=== PATIENT | female | born 1930 | race Caucasian/White ===

== ENCOUNTER 2017-05-01 13:45 | Observation (INO) | payer OTHER ==
--- OUTSIDE RECORDS SUMMARY | 2017-05-01 13:48 | XMS REPORT | Clinical Summary ---
:1930 Author Organization [facility] Address [address] [place] [address] Care Team Providers Name Role Phone Blanca Dorman Primary Care Provider Unavailable Allergies No Known Allergies Current Medications Prescription Sig. Disp. Refills Start Date End Date Status carvedilol (COREG) 6.25 MG Take 6.25 mg by Active tablet mouth 2 (two) times a day with meals. omeprazole (PriLOSEC) 20 Take 20 mg by Active MG capsule mouth daily. levothyroxine (SYNTHROID, Take 150 mcg by Active LEVOTHROID) 150 MCG tablet mouth every morning. clopidogrel (PLAVIX) 75 mg Take 75 mg by Active tablet mouth daily. cholecalciferol, vitamin Take 1,000 Units Active D3, (VITAMIN D3) 1,000 by mouth daily. unit tablet iron, carbonyl, 45 mg Take 65 mg by Active tablet mouth daily. docusate sodium (COLACE) Take 200 mg by Active 100 MG capsule mouth 2 (two) times a day. diphenhydrAMINE (BENADRYL) Take 25 mg by Active 25 mg tablet mouth nightly as needed for sleep. bisacodyl (DULCOLAX) 5 mg Take 5 mg by mouth Active EC tablet daily as needed for constipation. melatonin tablet Take by mouth. Active omega-3 acid ethyl esters Take 1.2 g by Active (LOVAZA) 1 gram capsule mouth 2 (two) times a day. albuterol sulfate Take 2.5 mg by Active (PROVENTIL) 2.5 mg/0.5 mL nebulization. solution for nebulization Active Problems Problem Noted Date Palpitation 11/07/2015 Atrial fibrillation 11/07/2015 COPD (chronic obstructive pulmonary disease) 11/07/2015 HTN (hypertension), malignant 11/07/2015 Hypothyroidism 11/07/2015 Immunizations Name Dates Previously Given Next Due FLUCELVAX QUAD PF (0.5mL syringe) 11/10/2015 Social History Tobacco Use Types Packs/Day Years Used Date Never Smoker Alcohol Use Drinks/Week oz/Week Comments No Sex Assigned at Date Recorded Not on file Last Filed Vital Signs Not on file Plan of Treatment Health Maintenance Due Date Last Done Comments ZOSTER VACCINE 1990 PNEUMOCOCCAL POLYSACCHARIDE VACCINE AGE 65 AND OVER 1995 PNEUMOCOCCAL-13 1995 INFLUENZA VACCINE 09/06/2016 11/10/2015 Implants Implanted Type Area [employer] Device Identifier Expiration Date Model / Serial / Lot Metal Plate Results Not on fileafter 04/30/2016 Insurance Payer Benefit Plan / Group Subscriber ID Type Phone Address [facility] [place] Medicaid [id number] [place], [place] [id number]
[2017-05-01 16:15] LABS: Absolute Lymphocytes (CBC) 2.2 K/uL (0.7-4.9); Absolute Monocytes 0.7 K/uL (0.1-1.3); Basophils % 0.5 % (0-1.3); Eosinophils % 5.4 % (0-4.4); Hematocrit 29.7 % (36.0-45.0); Lymphocytes % 29.8 % (15.3-44.8); MCH 29.7 pg (27.0-35.0); MCV 94.3 fL (80-100); MPV 10.1 fL (7.6-11.3); Monocytes % 9.4 % (3.3-12.3); RBC Red Blood Cell Count 3.15 M/uL (3.86-4.86)
--- NOTE | 2017-05-01 16:21 | RAD REPORT ---
EXAM DESCRIPTION: RAD - Chest Single View - 05/01/2017 3:56 pm CLINICAL HISTORY: Chest pain;SOB COMPARISON: February 24 TECHNIQUE: AP portable chest image was obtained 1551 hours . FINDINGS: Low lung volumes are noted. Lungs are fibrotic but no focal mass or consolidation seen. Ac elem failure is not suspected. Lung markings are not clearly different from February. No measurable ple ural effusion and no pneumothorax. No gross bony abnormality seen. No acute aortic findings suspected . IMPRESSION: Patient has extensive interstitial lung disease but no acute findings seen. No significant change from comparison.
--- NOTE | 2017-05-01 16:21 | EKG ---
Test Date: 2017-04-12 Test Time: 14:37:13 Material Requirements Worker: CARLOS MEASUREMENT RESULTS: Intervals: Rate: 69 WA: 120 QRSD: 82 QT: 384 QTc: 411 [place]: P: 24 WA: 120 QRS: 2 T: 24 INTERPRETIVE STATEMENTS: Normal sinus rhythm Minimal voltage criteria for LVH, may be normal variant Borderline ECG Compared to ECG 01/29/2017 17:19:10 Left ventricular hypertrophy now present Electronically Signed On 05-01-17 16:19:53 CDT by Emiliano Flores
[2017-05-01 16:25] LABS: BUN Blood Urea Nitrogen 30 mg/dL (6-20); Bicarbonate 28 mEq/L (21-31); Glomerular Filtration Rate 27 mL/min (=/>90); Glucose Level 99 mg/dL (65-120); Magnesium 1.7 mg/dL (1.8-2.5); Potassium 4.4 mEq/L (3.6-5.0); Sodium Level 141 mEq/L (135-145)
[2017-05-01 16:30] LABS: ALT/SGPT 12 IU/L (10-60); AST/SGOT 23 IU/L (10-42); Albumin 3.2 g/dL (3.2-5.5); Alkaline Phosphatase 73 IU/L (42-121); Bilirubin Direct < 0.1 mg/dL (0-0.2); Bilirubin Total 0.5 mg/dL (0.3-1.2); Creatine Phosphokinase 35 IU/L (22-269); Protein, Total 6.7 g/dL (6.0-8.3)
[2017-05-01 16:33] LABS: CKMB Creatine Kinase MB 0.7 ng/ml (0.3-4.0)
--- NOTE | 2017-05-01 16:39 | RAD REPORT ---
EXAM DESCRIPTION: CT - Head Brain Wo Cont - 05/01/2017 4:07 pm CLINICAL HISTORY: Weakness, altered mental status COMPARISON: April 13, 2016 TECHNIQUE: Axial 5 mm thick images of the head were obtained without IV contrast. All CT scans are performed using dose optimization technique as appropriate and may include automated exposure control or mA/KV adjustment according to patient size. FINDINGS: No intracranial hemorrhage, mass, edema or shift of mid-line structures. No acute cortical infarction. Moderate atrophy and chronic ischemic changes are present. No abnormal extra-axial fluid collections. Ventricles are in proportion to volume loss. Arterial and physiologic calcifications ar e present. Right mastoid air cells are partially opacified similar to prior study. Paranasal sinuses are clear. No acute bony findings. Asymmetry is created by head tilt. IMPRESSION: Moderate atrophy and chronic ischemic change similar to comparison. No acute findings since April 2016.
[2017-05-01] MEDS ORDERED: MAGNESIUM SULFATE 1 gm IVPB 1 GM/100 ML BAG IV ONE (17:12)
[2017-05-01 17:42] LABS: Urine Blood NEGATIVE (NEG); Urine Glucose NEGATIVE (NEG); Urine Protein NEGATIVE (NEG)
[2017-05-01 17:59] LABS: Urine Bacteria NONE SEEN /HPF (<20); Urine Culture Reflex Order NOT NEEDED; Urine RBC NONE SEEN /HPF (NONE SEEN)
--- NOTE | 2017-05-01 19:44 | ER ---
Nurse's Notes [facility] Name: Yoni Luna Age: 87 yrs Sex: Female : 1930 Arrival Date: 05/01/2017 Time: 13:49 Bed 15 Private MD: Blanca Galeana Diagnosis: Chest pain, unspecified;Shortness of breath Presentation: 05/01 14:16 Presenting complaint: Child states: over the weekend she was hallucinating, telling me hj my son had 2 women in my sons bed; today, she feels very weak, now she is complaining of chest and SOB; weakness; denies fever and chills;. Transition of care: patient was not received from another setting of care. Onset of symptoms was May 01, 2017. Care prior to arrival: None. 14:16 Method Of Arrival: Ambulatory 14:16 Acuity: ARACELIS 3 hj Triage Assessment: 14:20 General: Appears in no apparent distress. uncomfortable, Behavior is calm, cooperative, hj appropriate for age. Pain: Complains of pain in chest. Respiratory: Reports shortness of breath Onset: The symptoms/episode began/occurred weekend, the patient has moderate shortness of breath. Historical: - Allergies: 14:20 No Known Allergies; hj - Home Meds: 14:20 Amitiza 24 mcg Oral cap 1 cap 2 times per day [Active]; Benadryl 25 mg Oral cap nightly hj [Active]; Coreg 6.25 mg Oral tab 1 tab 2 times per day [Active]; Dulcolax Oral [Active]; furosemide 20 mg Oral tab 1 tab 2 times per day [Active]; iron 65 mg Oral 2 tab [Active]; isosorbide mononitrate 60 mg Oral Tb24 1 tab once daily [Active]; levothyroxine 125 mcg tab 1 tab once daily [Active]; melatonin 6 mg Oral TbDL nightly [Active]; [place] 5-325 mg Oral tab as needed [Active]; Plavix 75 mg Oral tab 1 tab once daily [Active]; ranitidine HCl 150 mg Oral cap 1 cap 2 times per day [Active]; tramadol 50 mg Oral tab as needed [Active]; - PMHx: 14:20 CHF; COPD; Hypertension; Renal Disease; scoliosis; hj - PSHx: 14:20 Cholecystectomy; Knee surgery; hj - Immunization history:: Adult Immunizations up to date. - Social history:: Smoking status: Patient/guardian denies using tobacco. Screenin:45 Abuse screen: Denies threats or abuse. Nutritional screening: No deficits noted. tw2 Tuberculosis screening: No symptoms or risk factors identified. Fall Risk Ambulatory Aid- Crutches/Cane/Walker (15 pts). Assessment: 14:20 Cardiovascular: Rhythm is. Respiratory: Airway is patent Respiratory effort is even, hj unlabored, 15:15 General: Appears in no apparent distress. well groomed, Behavior is calm, cooperative, tw2 appropriate for age. Pain: Denies pain. Neuro: Level of Consciousness is awake, alert, obeys commands, Oriented to person, place, time, situation. Cardiovascular: Heart tones S1 S2 Capillary refill < 3 seconds Patient's skin is warm and dry. Respiratory: Airway is patent Respiratory effort is even, unlabored, Respiratory pattern is regular, symmetrical, Breath sounds are clear bilaterally. Parent/caregiver reports the patient having home o2 use at 2L nc. GI: No signs and/or symptoms were reported involving the gastrointestinal system. Abdomen is flat, Bowel sounds present X 4 quads. : Parent/caregiver report the patient having "she isnt drinking very much and i wonder if she has a urinary track infection". EENT: No signs and/or symptoms were reported regarding the EENT system. Derm: Skin is fragile, is thin, Skin temperature is warm. Musculoskeletal: Range of motion: intact in all extremities. 16:20 Reassessment: Patient appears in no apparent distress at this time. No changes from tw2 previously documented assessment. Patient and/or family updated on plan of care and expected duration. Pain level reassessed. Patient is alert, oriented x 3, equal unlabored respirations, skin warm/dry/pink. 17:20 Reassessment: Patient appears in no apparent distress at this time. No changes from tw2 previously documented assessment. Patient and/or family updated on plan of care and expected duration. Pain level reassessed. Patient is alert, oriented x 3, equal unlabored respirations, skin warm/dry/pink. 18:09 Reassessment: Patient appears in no apparent distress at this time. No changes from tw2 previously documented assessment. Patient and/or family updated on plan of care and expected duration. Pain level reassessed. Patient is alert, oriented x 3, equal unlabored respirations, skin warm/dry/pink. 19:27 General: Appears in no apparent distress. Behavior is calm, cooperative. Pain: Denies kb1 pain. Neuro: Level of Consciousness is awake, alert, obeys commands, Oriented to person, place, time, situation. Cardiovascular: Patient's skin is warm and dry. Rhythm is sinus rhythm. Respiratory: Airway is patent Breath sounds are clear bilaterally. Vital Signs: 14:20 BP 129 / 50; Pulse 73; Resp 18; Temp 98.1(TE); Pulse Ox 100% on 2 lpm NC; Weight 63.5 hj kg; Height 4 ft. 6 in. (137.16 cm); Pain 6/10; 15:50 BP 149 / 67; Pulse 68; Resp 16; Pulse Ox 99% on 2 lpm NC; tw2 16:50 BP 168 / 76; Pulse 62; Resp 13; Pulse Ox 97% on 2 lpm NC; tw2 18:09 BP 139 / 70; Pulse 71; Resp 16; Pulse Ox 98% on 2 lpm NC; tw2 18:54 BP 138 / 86; Pulse 73; Resp 15; Pulse Ox 100% on 2 lpm NC; mh5 19:29 BP 138 / 86; Pulse 64; Resp 18; Pulse Ox 99% ; kb1 14:20 Body Mass Index 33.76 (63.50 kg, 137.16 cm) ED Course: 13:49 Patient arrived in ED. rg4 13:50 Blanca Galeana MD is Private Physician. rg4 14:18 Triage completed. hj 14:20 Arm band placed on right wrist. hj 15:10 Bed in low position. Call light in reach. Side rails up X2. Adult w/ patient. Cardiac tw2 monitor on. Pulse ox on. NIBP on. 15:13 Vanessa Ortiz, KENDY is Primary Nurse. tw2 15:20 EKG done, by ED staff, reviewed by Antonio Moyer MD. mh5 15:28 Kenji Mai NP is PHCP. pm1 15:28 Antonio Moyer MD is Attending Physician. pm1 15:46 No provider procedures requiring assistance completed. tw2 15:55 X-ray completed. Portable x-ray completed in exam room. vr 15:56 XRAY Chest (1 view) In Process Unspecified. EDMS 16:00 Inserted saline lock: 22 gauge in right antecubital area, using aseptic technique. tw2 Blood collected. 16:07 CT Head Brain wo Cont In Process Unspecified. EDMS 16:50 Straight cath inserted, using sterile technique, 18 Fr. Specimen obtained. Returned tw2 clear yellow urine. Patient tolerated well. 17:04 IV discontinued, intact, bleeding controlled, No redness/swelling at site. Pressure tw2 dressing applied, infiltration noted. 19:05 Report given to KENDY Koch. tw2 19:15 Primary Nurse role handed off by Vanessa Ortiz RN tw2 19:26 Zee Alva RN is Primary Nurse. kb1 19:43 Perla He MD is Hospitalizing Provider. pm1 Administered Medications: 17:25 Drug: Magnesium Sulfate 1 grams Route: IVPB; Infused Over: 1 hrs; Site: left wrist; tw2 18:24 Follow up: Response: No adverse reaction; IV Status: Completed infusion tw2 Outcome: 19:43 Decision to Hospitalize by Provider. pm1 21:16 Admitted to Tele accompanied by tech, family with patient, via stretcher, room 219, kb1 Report called to Brian LARRY 21:16 Condition: stable 21:16 Instructed on the need for admit. 21:18 Patient left the ED. kb1 Signatures: Dispatcher [employer] Rachna Perales Henry, RN Kenji Juarez, JOHAN TOOL MAINTENANCE TECHNICIAN pm1 Vanessa Ortiz RN RN tw2 Alisa Bernstein Meredith Maloney [facility] Zee Alva RN RN kb1 Corrections: (The following items were deleted from the chart) 18:25 18:09 BP 131 / 75; Resp 87bpm; Pulse Ox 98% 2 lpm Nasal Cannula; Temp 60.8F; tw2 tw2
--- NOTE | 2017-05-01 19:44 | EDPHYS ---
Physician Documentation [facility] Name: Yoni Luna Age: 87 yrs Sex: Female : 1930 Arrival Date: 05/01/2017 Time: 13:49 Bed 15 Private MD: Blanca Galeana ED Physician Antonio Moyer HPI: 05/01 19:00 This 87 yrs old Female presents to ER via Ambulatory with complaints of pm1 Shortness Of Breath, Chest Pain. 19:00 The patient or guardian reports chest pain that is located primarily in the substernal pm1 area. Onset: 2 day(s) ago. The pain does not radiate. Associated signs and symptoms: Pertinent positives: shortness of breath, Pertinent negatives: abdominal pain, cough, dizziness, nausea. The chest pain is described as a pressure. Duration: The patient or guardian reports multiple episodes, that have now resolved. Modifying factors: the symptoms are aggravated by exertion, walking. Severity of pain: in the emergency department the pain has resolved. The patient has experienced similar episodes in the past, a few times. The patient has not recently seen a physician, the patient's primary care provider is Dr. Galeana. Historical: - Allergies: 14:20 No Known Allergies; hj - Home Meds: 14:20 Amitiza 24 mcg Oral cap 1 cap 2 times per day [Active]; Benadryl 25 mg Oral cap nightly hj [Active]; Coreg 6.25 mg Oral tab 1 tab 2 times per day [Active]; Dulcolax Oral [Active]; furosemide 20 mg Oral tab 1 tab 2 times per day [Active]; iron 65 mg Oral 2 tab [Active]; isosorbide mononitrate 60 mg Oral Tb24 1 tab once daily [Active]; levothyroxine 125 mcg tab 1 tab once daily [Active]; melatonin 6 mg Oral TbDL nightly [Active]; [place] 5-325 mg Oral tab as needed [Active]; Plavix 75 mg Oral tab 1 tab once daily [Active]; ranitidine HCl 150 mg Oral cap 1 cap 2 times per day [Active]; tramadol 50 mg Oral tab as needed [Active]; - PMHx: 14:20 CHF; COPD; Hypertension; Renal Disease; scoliosis; hj - PSHx: 14:20 Cholecystectomy; Knee surgery; hj - Immunization history:: Adult Immunizations up to date. - Social history:: Smoking status: Patient/guardian denies using tobacco. ROS: 19:00 Constitutional: Negative for fever, chills, and weight loss, Eyes: Negative for injury, pm1 pain, redness, and discharge, ENT: Negative for injury, pain, and discharge, Neck: Negative for injury, pain, and swelling. 19:00 Abdomen/GI: Negative for abdominal pain, nausea, vomiting, diarrhea, and constipation, Back: Negative for injury and pain, : Negative for injury, bleeding, discharge, and swelling, MS/Extremity: Negative for injury and deformity, Skin: Negative for injury, rash, and discoloration, Neuro: Negative for headache, weakness, numbness, tingling, and seizure. 19:00 Cardiovascular: Positive for chest pain, Negative for edema, palpitations. 19:00 Respiratory: Positive for shortness of breath, Negative for cough, sputum production, wheezing. 19:00 Psych: Positive for visual hallucinations, 3 days ago that has resolved. pm1 Exam: 19:00 Constitutional: This is a well developed, well nourished patient who is awake, alert, pm1 and in no acute distress. Head/Face: Normocephalic, atraumatic. Eyes: Pupils equal round and reactive to light, extra-ocular motions intact. Lids and lashes normal. Conjunctiva and sclera are non-icteric and not injected. Cornea within normal limits. Periorbital areas with no swelling, redness, or edema. ENT: Nares patent. No nasal discharge, no septal abnormalities noted. Tympanic membranes are normal and external auditory canals are clear. Oropharynx with no redness, swelling, or masses, exudates, or evidence of obstruction, uvula midline. Mucous membranes moist. Neck: Trachea midline, no thyromegaly or masses palpated, and no cervical lymphadenopathy. Supple, full range of motion without nuchal rigidity, or vertebral point tenderness. No Meningismus. Chest/axilla: Normal chest wall appearance and motion. Nontender with no deformity. No lesions are appreciated. Cardiovascular: Regular rate and rhythm with a normal S1 and S2. No gallops, murmurs, or rubs. No pulse deficits. Respiratory: Lungs have equal breath sounds bilaterally, clear to auscultation and percussion. No rales, rhonchi or wheezes noted. No increased work of breathing, no retractions or nasal flaring. Abdomen/GI: Soft, non-tender, with normal bowel sounds. No distension or tympany. No guarding or rebound. No evidence of tenderness throughout. Back: No spinal tenderness. No costovertebral tenderness. Full range of motion. Skin: Warm, dry with normal turgor. Normal color with no rashes, no lesions, and no evidence of cellulitis. MS/ Extremity: Pulses equal, no cyanosis. Neurovascular intact. Full, normal range of motion. 19:00 Neuro: Orientation: is normal, Mentation: is normal, Motor: is normal, moves all fours, Sensation: is normal, no obvious gross deficits. Vital Signs: 14:20 BP 129 / 50; Pulse 73; Resp 18; Temp 98.1(TE); Pulse Ox 100% on 2 lpm NC; Weight 63.5 hj kg; Height 4 ft. 6 in. (137.16 cm); Pain 6/10; 15:50 BP 149 / 67; Pulse 68; Resp 16; Pulse Ox 99% on 2 lpm NC; tw2 16:50 BP 168 / 76; Pulse 62; Resp 13; Pulse Ox 97% on 2 lpm NC; tw2 18:09 BP 139 / 70; Pulse 71; Resp 16; Pulse Ox 98% on 2 lpm NC; tw2 18:54 BP 138 / 86; Pulse 73; Resp 15; Pulse Ox 100% on 2 lpm NC; mh5 19:29 BP 138 / 86; Pulse 64; Resp 18; Pulse Ox 99% ; kb1 14:20 Body Mass Index 33.76 (63.50 kg, 137.16 cm) hj MDM: 15:28 Patient medically screened. pm1 19:18 Data reviewed: vital signs. Data interpreted: Pulse oximetry: on 2L(s) per nasal pm1 canula, is 100 %. Interpretation: normal. Counseling: I had a detailed discussion with the patient and/or guardian regarding: the historical points, exam findings, and any diagnostic results supporting the discharge/admit diagnosis, lab results, radiology results, the need for further work-up and treatment in the hospital, to return to the emergency department if symptoms worsen or persist or if there are any questions or concerns that arise at home. 19:51 Physician consultation: Perla He MD was called at 19:51, was contacted at 19:51, pm1 regarding admission, and will see patient. 05/01 15:39 Order name: Basic Metabolic Panel; Complete Time: 16:39 pm1 05/01 15:39 Order name: BNP; Complete Time: 16:39 pm1 05/01 15:39 Order name: CBC with Diff; Complete Time: 16:39 pm05/01 15:39 Order name: Ckmb; Complete Time: 16:39 pm1 05/01 15:39 Order name: CPK; Complete Time: 16:39 pm1 05/01 15:39 Order name: LFT's; Complete Time: 16:39 pm1 05/01 15:39 Order name: Magnesium; Complete Time: 16:39 pm1 05/01 15:39 Order name: PT-INR; Complete Time: 16:57 pm1 05/01 15:39 Order name: Ptt, Activated; Complete Time: 16:57 pm05/01 15:39 Order name: Troponin (emerg Dept Use Only); Complete Time: 16:39 pm05/01 15:39 Order name: XRAY Chest (1 view); Complete Time: 16:39 pm05/01 15:39 Order name: CT Head Brain wo Cont; Complete Time: 16:39 pm1 05/01 15:39 Order name: Urine Microscopic Only; Complete Time: 18:02 pm05/01 17:04 Order name: Urine Dipstick--Ancillary (enter results); Complete Time: 17:50 ag 05/01 14:23 Order name: EKG; Complete Time: 14:23 hj 05/01 15:39 Order name: Cardiac monitoring; Complete Time: 15:47 pm05/01 15:39 Order name: EKG - Nurse/Tech; Complete Time: 15:47 pm05/01 15:39 Order name: IV Saline Lock; Complete Time: 16:06 pm05/01 15:39 Order name: Labs collected and sent; Complete Time: 16:06 pm05/01 15:39 Order name: O2 Per Protocol; Complete Time: 15:47 pm05/01 15:39 Order name: O2 Sat Monitoring; Complete Time: 15:47 pm05/01 15:39 Order name: Urine Dipstick-Ancillary (obtain specimen); Complete Time: 16:51 pm1 05/01 15:39 Order name: Straight Cath - Urine; Complete Time: 16:50 pm1 Administered Medications: 17:25 Drug: Magnesium Sulfate 1 grams Route: IVPB; Infused Over: 1 hrs; Site: left wrist; tw2 18:24 Follow up: Response: No adverse reaction; IV Status: Completed infusion tw2 Disposition: 05/02 06:55 Co-signature as Attending Physician, Antonio Moyer MD I agree with the assessment and [facility] plan of care. Disposition: 05/01/17 19:43 Hospitalization ordered by Perla He for Observation. Preliminary diagnosis are Chest pain, unspecified, Shortness of breath. - Bed requested for Telemetry/MedSurg (observation). - Status is Observation. kb1 - Condition is Stable. - Problem is new. - Symptoms have improved. UTI on Admission? No Signatures: Dispatcher [employer] EDMS Shelly Goodson, RN Antonio Sousa MD MD cha Joaquin, Henry RN KENDY Kenji Mai NP MANAGER INTERNSHIP pm1 Vanessa Ortiz RN RN tw2 Zee Alva RN RN kb1 Corrections: (The following items were deleted from the chart) 05/01 19:43 19:18 Counseling: I had a detailed discussion with the patient and/or guardian pm1 regarding: the historical points, exam findings, and any diagnostic results supporting the discharge/admit diagnosis, lab results, radiology results, the need for outpatient follow up, to return to the emergency department if symptoms worsen or persist or if there are any questions or concerns that arise at home, pm1
[2017-05-01] MEDS ORDERED: ACETAMINOPHEN 500 MG TAB PO PRN (20:34)
[2017-05-01] MEDS ORDERED: ALPRAZOLAM 0.25 MG TABLET PO PRN (20:34)
[2017-05-01] MEDS ORDERED: HYDROCODONE/APAP 5/325 MG TAB PO PRN (20:36)
[2017-05-01] MEDS ORDERED: METOPROLOL TAR 50 MG TAB PO SCH (21:00)
[2017-05-01] MEDS ORDERED: ATORVASTATIN 10 MG TAB PO SCH (21:00)
[2017-05-01 21:35] VITALS: O2SAT 99
[2017-05-01] MEDS: FUROSEMIDE 20 MG TABLET PO SCH (21:51)
[2017-05-01] MEDS: CARVEDILOL 6.25 MG TAB PO SCH (21:51)
[2017-05-01] MEDS: IPRATROPIUM BROM 0.5MG/2.5ML NEB SCH (22:16)
[2017-05-01 22:44] VITALS: BMI 33.7
[2017-05-01] MEDS: METHYLPREDNISOLONE 40 MG INJ IV SCH (23:57)
[2017-05-02] MEDS: METHYLPREDNISOLONE 40 MG INJ IV SCH ×2 (05:19→11:50)
[2017-05-02] MEDS ORDERED: LEVOTHYROXINE SOD 0.125 MG TAB PO SCH (06:00)
[2017-05-02] MEDS: IPRATROPIUM BROM 0.5MG/2.5ML NEB SCH (07:59)
[2017-05-02] MEDS ORDERED: ARFORMOTEROL TARTRATE 15 MCG/2 ML VIAL.NEB NEB SCH (08:00)
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
[2017-05-02] MEDS ORDERED: ASPIRIN EC 81 MG TAB PO SCH (09:00)
[2017-05-02] MEDS ORDERED: ENOXAPARIN 40 MG/0.4 ML SQ SCH (09:00)
[2017-05-02] MEDS ORDERED: CLOPIDOGREL 75 MG TABLET PO SCH (09:00)
[2017-05-02] MEDS ORDERED: ISOSORBIDE MONO SR 60 MG TAB PO SCH (09:00)
[2017-05-02] MEDS: CARVEDILOL 6.25 MG TAB PO SCH (09:44)
[2017-05-02] MEDS: FUROSEMIDE 20 MG TABLET PO SCH (09:44)
[2017-05-02 12:10] VITALS: BP 183/74; TEMP 98.8
--- NOTE | 2017-05-02 15:26 | P.DS ---
Admission Date: 05/01/17 Discharge Date: 05/02/17 Disposition: ROUTINE DISCHARGE Discharge Condition: FAIR Reason for Admission: Chest pain rule out acute coronary syndrome - Problems (1) CHF exacerbation Onset Date: 03/15/16 Status: Acute Qualifiers: Heart failure type: diastolic Qualified Code(s): I50.33 - Acute on chronic diastolic (congestive) heart failure (2) COPD (chronic obstructive pulmonary disease) Status: Acute (3) COPD exacerbation Status: Acute (4) Chronic anemia Onset Date: 11/23/16 Status: Acute (5) Gastroesophageal reflux disease Onset Date: 11/23/16 Status: Chronic Qualifiers: Esophagitis presence: without esophagitis Qualified Code(s): K21.9 - Gastro -esophageal reflux disease without esophagitis (6) Hypertension Onset Date: 11/23/16 Status: Chronic Qualifiers: (7) Hypothyroidism Onset Date: 11/23/16 Status: Chronic Qualifiers: (8) Osteoarthritis Onset Date: 11/23/16 Status: Chronic Qualifiers: Osteoarthritis location: multiple joints Osteoarthritis type: unspecified Qualified Code(s): M15.9 - Polyosteoarthritis, unspecified Brief History of Present Illness: Patient is a 87-year-old female who presents to the hospital with chest pain. She has baseline shortness of breath. However her shortness of breath worsened when the chest pain occurred. She sees her double backer, Dr. Fritz, regularly. However, because of her lung disease there is not a recommendation for more extensive workup. Family is unsure when she had her last stress test. Her chest pain has resolved. Her shortness of breath is improved. At this time will rule her out for acute coronary syndrome. If her workup is negative then possible discharge home in the morning. Hospital Course: The patient when admitted hospital and she was treated with intravenous Lasix and steroids with clinical improvement there is no signs of infection or pneumonia. Due to comorbidities I decision was made not to pursue extensive workup. The patient is discharged home in improved and stable condition Vital Signs/Physical Exam: Temp Pulse Resp BP Pulse Ox 98.8 F 86 20 183/74 H 91 05/02/17 12:00 05/02/17 12:00 05/02/17 12:00 05/02/17 12:00 05/02/17 12:00 General: Alert, In no apparent distress HEENT: Atraumatic, PERRLA, EOMI Neck: Supple, JVD not distended Respiratory: Clear to auscultation bilaterally, Normal air movement Cardiovascular: Regular rate/rhythm, Normal S1 S2 Gastrointestinal: Normal bowel sounds, No tenderness Musculoskeletal: No tenderness Integumentary: No rashes Neurological: Normal speech, Normal tone, Normal affect Lymphatics: No axilla or inguinal lymphadenopathy Laboratory Data at Discharge: WBC 7.3 K/uL (4.3-10.9) 05/01/17 16:00 Hgb 9.4 g/dL (12.0-15.0) L 05/01/17 16:00 Hct 29.7 % (36.0-45.0) L 05/01/17 16:00 Plt Count 143 K/uL (152-406) L 05/01/17 16:00 PT 11.9 SECONDS (9.2-12.8) 05/01/17 16:00 INR 1.00 05/01/17 16:00 APTT 27.2 SECONDS (21.7-34.4) 05/01/17 16:00 Sodium 141 mEq/L (135-145) 05/01/17 16:00 Potassium 4.4 mEq/L (3.6-5.0) 05/01/17 16:00 BUN 30 mg/dL (6-20) H 05/01/17 16:00 Creatinine 1.78 mg/dL (0.44-1.00) H 05/01/17 16:00 Glucose 99 mg/dL (65-120) 05/01/17 16:00 Magnesium 1.7 mg/dL (1.8-2.5) L 05/01/17 16:00 Total Bilirubin 0.5 mg/dL (0.3-1.2) 05/01/17 16:00 AST 23 IU/L (10-42) 05/01/17 16:00 ALT 12 IU/L (10-60) 05/01/17 16:00 Alkaline Phosphatase 73 IU/L (42-121) 05/01/17 16:00 Troponin I < 0.03 ng/mL (<0.03) 05/02/17 00:16 B-Natriuretic Peptide 179 pg/ml (<=100) H 05/01/17 16:00 Triglycerides 57 mg/dL (35-160) 05/02/17 05:32 Cholesterol 141 mg/dL (<200) 05/02/17 05:32 HDL Cholesterol 42 mg/dL (29-89) 05/02/17 05:32 Cholesterol/HDL Ratio 3.36 05/02/17 05:32 Home Medications: Ferrous Sulfate [Iron] 130 mg PO BID 06/28/12 Hydrocodone Bit/Acetaminophen [Hydrocodon-Acetaminophen 5-325] 1 each PO Q8H 12/20 Carvedilol [Coreg*] 6.25 mg PO BID 08/05/14 Furosemide [Lasix*] 20 mg PO BID 08/05/14 Isosorbide Mononitrate [Isosorbide Mononitrate ER] 60 mg PO DAILY 03/14/16 Albuterol Sulfate [Albuterol Sulfate 0.083% Neb Soln] 2.5 mg IH Q6HR PRN #60 vial.neb 11/25/16 Diphenhydramine [Benadryl*] 25 mg PO BEDTIME PRN PRN 12/10/16 Levothyroxine Sodium 125 mcg PO [id number] 12/11/16 Atorvastatin Calcium [Lipitor*] 10 mg PO BEDTIME #30 tab 12/14/16 Pantoprazole [Protonix Tab*] 40 mg PO BIDAC #60 tab 12/14/16 Bisacodyl [Dulcolax] 5 mg PO DAILY PRN 05/01/17 Arformoterol Tartrate [Brovana] 15 mcg IH BIDRESP #120 ml 05/02/17 Clopidogrel Bisulfate [Plavix] 75 mg PO DAILY #30 tablet 05/02/17 Prednisone [Prednisone*] 40 mg PO [id number] #20 tab 05/02/17 New Medications: Arformoterol Tartrate [Brovana] 15 mcg IH BIDRESP #120 ml Clopidogrel Bisulfate [Plavix] 75 mg PO DAILY #30 tablet Prednisone [Prednisone*] 40 mg PO [id number] #20 tab Diet: Regular Activity: Ad katharina Time spent managing pt's care (in minutes): 15
--- NOTE | 2017-05-02 16:28 | EKG ---
Test Date: 2017-05-02 Test Time: 08:08:48 [employer] Administrator: DOUGLAS MEASUREMENT RESULTS: Intervals: Rate: 70 MA: 116 QRSD: 92 QT: 408 QTc: 440 [place]: P: 93 MA: 116 QRS: 34 T: 42 INTERPRETIVE STATEMENTS: Normal sinus rhythm Normal ECG Compared to ECG 04/12/2017 14:37:13 Left ventricular hypertrophy no longer present Electronically Signed On 05-02-17 16:25:02 CDT by Tushar Bynum
== END 2017-05-02 12:50 | disposition home or self-care (01) ==
LOC: ER 13:45 → ERHOLD 20:07 → 2ND 20:47
PROVIDERS: ADMIT Hospitalist; ATTEND Hospitalist
DX: I13.0 Hypertensive heart and chronic kidney disease with heart failure and stage 1 through stage 4 chronic kidney disease, or unspecified chronic kidney disease (principal); N18.9 Chronic kidney disease, unspecified; I50.33 Acute on chronic diastolic (congestive) heart failure; J44.1 Chronic obstructive pulmonary disease with (acute) exacerbation; E03.9 Hypothyroidism, unspecified; D64.9 Anemia, unspecified; K21.9 Gastro-esophageal reflux disease without esophagitis; M15.9 Polyosteoarthritis, unspecified
CPT/HCPCS: 36415; 51702; 70450; 71045; 80048; 80061; 80076; 82550; 82553; 83735; 83880; 84484 ×2; 85025; 85610; 85730; 93005 ×2; 94640; 96365; 99285; G0378 ×2; J1650; J2920 ×3; J3475; J7605; 81003; 81015

== ENCOUNTER 2017-07-16 17:09 | Emergency (ER) | payer OTHER ==
--- OUTSIDE RECORDS SUMMARY | 2017-07-16 17:11 | XMS REPORT ---
:1930 Author Organization [employer] Care Team Providers Name Role Phone Galeana, Na Provider Role Unavailable Allergies No Known Allergies Problems Problem Type Condition Code Onset Dates Condition Status Problem COPD (chronic obstructive pulmonary J44.9 Active disease) Problem Osteoarthritis M19.90 Active Problem Hyperlipidemia E78.5 Active Problem Hospital discharge follow-up Z09 Active Problem Chronic diastolic congestive heart I50.32 Active failure Problem Hypomagnesemia E83.42 Active Problem At risk for falling Z91.81 Active Problem Kidney disease N28.9 Active Problem Sacral decubitus ulcer, 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
--- OUTSIDE RECORDS SUMMARY | 2017-07-16 17:11 | XMS REPORT ---
:1930 Author Organization [employer] Care Team Providers Name Role Phone Galeana, Na Provider Role Unavailable Allergies, Adverse Reactions, Alerts Substance Reaction Event Type codeine Info Not Available Drug Allergy Problems Problem Type Condition Code Onset Dates Condition Status Problem COPD (chronic obstructive pulmonary J44.9 Active disease) Problem Osteoarthritis M19.90 Active Problem Hyperlipidemia E78.5 Active Problem Hospital discharge follow-up Z09 Active Assessment Benign essential HTN I10 Active Problem Chronic diastolic congestive heart I50.32 Active failure Problem Hypomagnesemia E83.42 Active Problem At risk for falling Z91.81 Active Problem Kidney disease N28.9 Active Problem Sacral decubitus ulcer, 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 Active Problem 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 Active Assessment COPD (chronic obstructive pulmonary J44.9 Active disease) Assessment Sacral decubitus ulcer, 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 Active Assessment Hyperlipidemia E78.5 Active Assessment Hypomagnesemia E83.42 Active Problem Anemia D64.9 Active Problem GERD (gastroesophageal reflux K21.9 Active disease) Assessment Chronic diastolic congestive heart I50.32 Active failure Problem Benign essential HTN I10 Active Assessment Hospital discharge follow-up Z09 Active Problem Hypothyroidism E03.9 Active Medications Medication Code Code Instructions Start End Status Dosage System Date Date Bactroban [facility] 08571994640 2 % Externally Active 1 application Three times a to affected day area Aspirin Adult [facility] 30950790978 81 MG Orally Active 1 tablet Low Dose Once a day Lasix [facility] 05307545687 20 MG Active TAKE 1 TABLET(S) BY MOUTH IN THE MORNING NEEDED Pantoprazole [facility] 01139539188 40 MG Active TAKE 1 TABLET Sodium BY MOUTH TWICE DAILY [place] [facility] 75868082829 5-325 MG Orally Active 1 tablet as every 6 hrs needed Coreg [facility] 40936199379 6.25 MG Active TAKE 1 TABLET BY MOUTH TWICE DAILY Lasix [facility] 89200236331 20 MG Orally Active 1 tablet Once a day Lipitor [facility] 92747773921 40 MG Orally Active 1 tablet Once a day Ventolin HFA [facility] 11312066468 108 (90 Base) Active 2 puffs as MCG/ACT needed Inhalation every 6 hrs Synthroid [facility] 46661788079 125 MCG Active TAKE 1 TABLET BY MOUTH ONCE DAILY Lotrisone [facility] 13351419405 1-0.05 % Active 1 application Externally to affected Twice a day area Incruse Ellipta [facility] 97384647301 62.5 MCG/INH Active 1 puff Inhalation Once a day Plavix [facility] 09885370831 75 MG Orally Active 1 tablet Once a day Santyl [facility] 30631609259 250 UNIT/GM Active 1 application Externally Once to affected a day area Coreg [facility] 23697583526 6.25 MG Active TAKE 1 TABLET BY MOUTH TWICE DAILY Ferrous Sulfate [facility] 44358152374 325 (65 Fe) MG Active 1 tablet Orally Once a day Triamcinolone [facility] 05983375920 0.5 % Active 1 application Acetonide Externally to affected Twice a day area Protonix [facility] 99027357267 40 MG Orally Active 1 tablet Once a day Results No Known Results Summary Purpose [employer]ClinicalWorks Submission
--- OUTSIDE RECORDS SUMMARY | 2017-07-16 17:11 | XMS REPORT | Clinical Summary ---
:1930 Author Organization [facility] Address [address] [place] [address] Care Team Providers Name Role Phone Blanca [...] Health Maintenance Due Date Last Done Comments SHINGRIX VACCINE (#1) 02/02/1980 ZOSTER VACCINE 1990 PNEUMOCOCCAL POLYSACCHARIDE VACCINE AGE 65 AND OVER 1995 PNEUMOCOCCAL-13 1995 INFLUENZA VACCINE 09/06/2017 11/10/2015 Implants Implanted Type Area Superintendent Drivers Device Identifier Expiration Date Model / Serial / Lot Metal Plate Results Not on fileafter 07/15/2016 Insurance Payer Benefit Plan / Group Subscriber ID Type Phone Address [employer] [facility] xxxxxxxxx [facility] [place] MEDICAID xxxxxxxxx Medicaid [phone] [place] [address]
--- NOTE | 2017-07-16 18:14 | RAD REPORT ---
EXAM DESCRIPTION: Harpreet Single View07/16/2017 6:02 pm CLINICAL HISTORY: Chest pain COMPARISON: April 2017 FINDINGS: Mild interstitial lung opacities appear chronic. The lungs appear clear of acute infiltrate. The heart is mildly enlarged IMPRESSION: No acute abnormalities displayed
[2017-07-16 18:40] LABS: Absolute Lymphocytes (CBC) 1.9 K/uL (0.7-4.9); Absolute Monocytes 0.9 K/uL (0.1-1.3); Absolute Neutrophil 3.8 K/uL (1.8-8.0); Basophils % 0.5 % (0-1.3); Eosinophils % 6.1 % (0-4.4); Hematocrit 28.6 % (36.0-45.0); Lymphocytes % 26.6 % (15.3-44.8); MCH 30.5 pg (27.0-35.0); MPV 10.5 fL (7.6-11.3); Monocytes % 12.4 % (3.3-12.3); Protime INR 1.03; RBC Red Blood Cell Count 3.01 M/uL (3.86-4.86)
[2017-07-16 18:57] LABS: Albumin 3.1 g/dL (3.2-5.5); Bilirubin Direct 0.1 mg/dL (0-0.2); Bilirubin Total 0.6 mg/dL (0.3-1.2); Magnesium 1.9 mg/dL (1.8-2.5); Protein, Total 7.1 g/dL (6.0-8.3)
[2017-07-16 19:03] LABS: Urine Blood 1+ (NEG); Urine Glucose NEGATIVE (NEG); Urine Protein 1+ (NEG)
[2017-07-16 19:04] LABS: Urine Bacteria 20-50 /HPF (<20); Urine Culture Reflex Order REFLEXED
[2017-07-16] MEDS ORDERED: CEFTRIAXONE/SWI 1gm 1 GM/10 ML SYR ONE (19:20)
[2017-07-16] MEDS ORDERED: HYDROCODONE/APAP 5/325 MG TAB ONE (19:20)
--- NOTE | 2017-07-16 21:05 | ER ---
Nurse's Notes [facility] Name: Yoni Luna Age: 87 yrs Sex: Female : 1930 Arrival Date: 07/16/2017 Time: 17:16 Bed 15 Private MD: Blanca Galeana Diagnosis: Urinary tract infection, site not specified;Delirium due to known physiological condition Presentation: 07/16 17:19 Presenting complaint: Patient states: Left sided chest pain, SOB, and nonproductive hb cough x 2 days. Daughter also reports pt has had difficulty sleeping and increased confusion over the last week. Denies fever. Transition of care: patient was not received from another setting of care. Onset of symptoms was July 09, 2017. Risk Assessment: Do you want to hurt yourself or someone else? Patient reports no desire to harm self or others. Care prior to arrival: None. 17:19 Method Of Arrival: Wheelchair hb 17:19 Acuity: ARACELIS 3 hb 22:04 Initial Sepsis Screen: Does the patient meet any 2 criteria? No. Patient's initial aj1 sepsis screen is negative. Does the patient have a suspected source of infection? No. Patient's initial sepsis screen is negative. Historical: - Allergies: 17:22 No Known Allergies; hb - Home Meds: 17:22 Amitiza 24 mcg Oral cap 1 cap 2 times per day [Active]; Benadryl 25 mg Oral cap nightly hb [Active]; Coreg 6.25 mg Oral tab 1 tab 2 times per day [Active]; Dulcolax Oral [Active]; furosemide 20 mg Oral tab 1 tab 2 times per day [Active]; iron 65 mg Oral 2 tab [Active]; isosorbide mononitrate 60 mg Oral Tb24 1 tab once daily [Active]; levothyroxine 125 mcg tab 1 tab once daily [Active]; melatonin 6 mg Oral TbDL nightly [Active]; Vernonia 5-325 mg Oral tab as needed [Active]; Plavix 75 mg Oral tab 1 tab once daily [Active]; ranitidine HCl 150 mg Oral cap 1 cap 2 times per day [Active]; tramadol 50 mg Oral tab as needed [Active]; - PMHx: 17:22 COPD; Hypertension; Renal Disease; CHF; scoliosis; hb - PSHx: 17:22 Cholecystectomy; Knee surgery; hb - Immunization history:: Adult Immunizations up to date. - Social history:: Smoking status: Patient/guardian denies using tobacco. - Ebola Screening: : No symptoms or risks identified at this time. Screenin:55 Abuse screen: Denies threats or abuse. Denies injuries from another. Nutritional aj1 screening: No deficits noted. Tuberculosis screening: No symptoms or risk factors identified. 22:04 Fall Risk None identified. aj1 Assessment: 17:55 General: Appears in no apparent distress. uncomfortable, Behavior is calm, cooperative. aj1 Pain: Complains of pain in chest Pain does not radiate. Pain currently is 7 out of 10 on a pain scale. Quality of pain is described as aching, Pain began 2-3 days ago. Neuro: Level of Consciousness is awake, alert, obeys commands, Oriented to person, place, time, situation, Moves all extremities. Patient's daughter states that she has been seeing things that aren't there at home. Cardiovascular: Reports chest pain, Denies palpitations, shortness of breath, syncope, vomiting, Heart tones S1 S2 present Patient's skin is warm and dry. Rhythm is regular. Respiratory: Airway is patent Respiratory effort is even, unlabored, Respiratory pattern is regular, symmetrical, Breath sounds are clear bilaterally. GI: No signs and/or symptoms were reported involving the gastrointestinal system. : No signs and/or symptoms were reported regarding the genitourinary system. EENT: No signs and/or symptoms were reported regarding the EENT system. Derm: No signs and/or symptoms reported regarding the dermatologic system. Skin is pink, warm \T\ dry. normal. Musculoskeletal: No signs and/or symptoms reported regarding the musculoskeletal system. Circulation, motion, and sensation intact. 18:55 Reassessment: Patient appears in no apparent distress at this time. No changes from aj1 previously documented assessment. Patient and/or family updated on plan of care and expected duration. Pain level reassessed. Patient is alert, oriented x 3, equal unlabored respirations, skin warm/dry/pink. 19:38 Reassessment: Patient appears in no apparent distress at this time. No changes from aj1 previously documented assessment. Patient and/or family updated on plan of care and expected duration. Pain level reassessed. Patient is alert, oriented x 3, equal unlabored respirations, skin warm/dry/pink. 20:41 Reassessment: Patient states that she is hungry and would like something to eat. aj1 Patient provided with crackers as a snack. 21:40 Reassessment: Patient appears in no apparent distress at this time. No changes from aj1 previously documented assessment. Patient and/or family updated on plan of care and expected duration. Pain level reassessed. Patient is alert, oriented x 3, equal unlabored respirations, skin warm/dry/pink. Vital Signs: 17:18 BP 119 / 59; Pulse 88; Resp 24; Temp 98.9; Pulse Ox 96% on R/A; hb 19:42 BP 129 / 60; Pulse 85; Resp 17; Pulse Ox 95% ; aj1 20:42 BP 131 / 56; Pulse 72; Resp 18; Pulse Ox 99% ; aj1 21:14 BP 130 / 40; Pulse 72; Resp 20; Pulse Ox 96% ; aj1 ED Course: 17:16 Patient arrived in ED. rg4 17:16 Blanca Galeana MD is Private Physician. rg4 17:20 Triage completed. hb 17:22 Arm band placed on right wrist. hb 17:38 Sean Garay PA is PHCP. jr8 17:38 Antonio Moyer MD is Attending Physician. jr8 17:39 Mohini Pan, KENDY is Primary Nurse. aj1 17:55 Patient has correct armband on for positive identification. database administrator on. Pulse aj1 ox on. NIBP on. 17:55 No provider procedures requiring assistance completed. Patient maintains SpO2 aj1 saturation greater than 95% on room air. 18:01 XRAY Chest (1 view) In Process Unspecified. EDMS 18:01 X-ray completed. Portable x-ray completed in exam room. Patient tolerated procedure kw well. 18:31 Basic Metabolic Panel Sent. ag 18:31 BNP Sent. ag 18:31 CBC with Diff Sent. ag 18:31 LFT's Sent. ag 18:31 Magnesium Sent. ag 18:31 PT-INR Sent. ag 18:31 Troponin (emerg Dept Use Only) Sent. ag 18:32 EKG done, by ED staff, reviewed by Sean BALTAZAR. ag 18:38 Initial lab(s) drawn, by or, sent to lab. Inserted saline lock: 22 gauge in right aj1 antecubital area, using aseptic technique. Blood collected. 18:58 Urine Microscopic Only Sent. ag 18:58 Urine Microscopic Only Sent. ag 18:58 Straight cath inserted, using sterile technique, 16 Fr. Specimen obtained. ag 21:03 Blanca Galeana MD is Referral Physician. jr8 22:04 IV discontinued, intact, bleeding controlled, No redness/swelling at site. Pressure aj1 dressing applied. Administered Medications: 19:29 Drug: Vernonia 5 mg-325 mg 1 tabs Route: PO; ea 21:15 Follow up: Response: No adverse reaction aj1 19:29 Drug: Rocephin 1 grams Route: IV; Rate: calculated rate; Site: right antecubital; ea 21:15 Follow up: IV Status: Completed infusion aj1 Outcome: 21:04 Discharge ordered by . jr8 22:05 Discharged to home via wheelchair, with family. aj1 22:05 Condition: good 22:05 Discharge instructions given to patient, Instructed on discharge instructions, follow up and referral plans. medication usage, Demonstrated understanding of instructions, follow-up care, medications, Prescriptions given X 1. 22:06 Patient left the ED. aj1 Addendum: 07/19/2017 07:27 Addendum: Culture Results: Positive urine culture. Bacteria is resistant to, has i w intermediate sensitivity, or is not tested against prescribed antibiotics. Report given to SARTHAK for further evaluation and then to roll changer for follow up with patient. Signatures: Dispatcher [employer] EDMS Mohini Pan RN RN aj1 Gabriela Harris RN RN iw Whitley, Kimberlee kw Roszak, Josh, PA PA jr8 Yocasta Hoang Heather, RN RN hb Garcia, Rubi rg4 Irasema Babcock RN RN ea
--- NOTE | 2017-07-16 21:05 | EDPHYS ---
Physician Documentation [facility] Name: Yoni Luna Age: 87 yrs Sex: Female : 1930 Arrival Date: 07/16/2017 Time: 17:16 Bed 15 Private MD: Blanca Galeana ED Physician Antonio Moyer HPI: 07/16 19:15 This 87 yrs old Female presents to ER via Wheelchair with complaints of Chest jr8 Pain. 19:15 Daughter stated that she has been acting delirious and now stating that her chest was jr8 hurting. Patient A\T\O x4 upon arrival. Normal mentation. Family stated that she has been seeing things around the house. Severity of symptoms: At their worst the symptoms were moderate in the emergency department the symptoms are unchanged. The patient has not experienced similar symptoms in the past. The patient has not recently seen a physician. Historical: - Allergies: 17:22 No Known Allergies; hb - Home Meds: 17:22 Amitiza 24 mcg Oral cap 1 cap 2 times per day [Active]; Benadryl 25 mg Oral cap nightly hb [Active]; Coreg 6.25 mg Oral tab 1 tab 2 times per day [Active]; Dulcolax Oral [Active]; furosemide 20 mg Oral tab 1 tab 2 times per day [Active]; iron 65 mg Oral 2 tab [Active]; isosorbide mononitrate 60 mg Oral Tb24 1 tab once daily [Active]; levothyroxine 125 mcg tab 1 tab once daily [Active]; melatonin 6 mg Oral TbDL nightly [Active]; [place] 5-325 mg Oral tab as needed [Active]; Plavix 75 mg Oral tab 1 tab once daily [Active]; ranitidine HCl 150 mg Oral cap 1 cap 2 times per day [Active]; tramadol 50 mg Oral tab as needed [Active]; - PMHx: 17:22 COPD; Hypertension; Renal Disease; CHF; scoliosis; hb - PSHx: 17:22 Cholecystectomy; Knee surgery; hb - Immunization history:: Adult Immunizations up to date. - Social history:: Smoking status: Patient/guardian denies using tobacco. - Ebola Screening: : No symptoms or risks identified at this time. ROS: 19:15 Eyes: Negative for injury, pain, redness, and discharge, ENT: Negative for injury, jr8 pain, and discharge, Neck: Negative for injury, pain, and swelling, Respiratory: Negative for shortness of breath, cough, wheezing, and pleuritic chest pain, Abdomen/GI: Negative for abdominal pain, nausea, vomiting, diarrhea, and constipation, Back: Negative for injury and pain, MS/Extremity: Negative for injury and deformity, Skin: Negative for injury, rash, and discoloration. 19:15 Cardiovascular: Positive for chest pain, Negative for edema, orthopnea, palpitations, paroxysmal nocturnal dyspnea. 19:15 Neuro: Positive for altered mental status, weakness, Negative for dizziness, seizure activity, speech changes, syncope. Exam: 19:15 Eyes: Pupils equal round and reactive to light, extra-ocular motions intact. Lids and jr8 lashes normal. Conjunctiva and sclera are non-icteric and not injected. Cornea within normal limits. Periorbital areas with no swelling, redness, or edema. ENT: Nares patent. No nasal discharge, no septal abnormalities noted. Tympanic membranes are normal and external auditory canals are clear. Oropharynx with no redness, swelling, or masses, exudates, or evidence of obstruction, uvula midline. Mucous membranes moist. Neck: Trachea midline, no thyromegaly or masses palpated, and no cervical lymphadenopathy. Supple, full range of motion without nuchal rigidity, or vertebral point tenderness. No Meningismus. Cardiovascular: Regular rate and rhythm with a normal S1 and S2. No gallops, murmurs, or rubs. Normal PMI, no JVD. No pulse deficits. Respiratory: Lungs have equal breath sounds bilaterally, clear to auscultation and percussion. No rales, rhonchi or wheezes noted. No increased work of breathing, no retractions or nasal flaring. Abdomen/GI: Soft, non-tender, with normal bowel sounds. No distension or tympany. No guarding or rebound. No evidence of tenderness throughout. Back: No spinal tenderness. No costovertebral tenderness. Full range of motion. Skin: Warm, dry with normal turgor. Normal color with no rashes, no lesions, and no evidence of cellulitis. MS/ Extremity: Pulses equal, no cyanosis. Neurovascular intact. Full, normal range of motion. Neuro: Awake and alert, GCS 15, oriented to person, place, time, and situation. Cranial nerves II-XII grossly intact. Motor strength 5/5 in all extremities. Sensory grossly intact. Cerebellar exam normal. Normal gait. Vital Signs: 17:18 BP 119 / 59; Pulse 88; Resp 24; Temp 98.9; Pulse Ox 96% on R/A; hb 19:42 BP 129 / 60; Pulse 85; Resp 17; Pulse Ox 95% ; aj1 20:42 BP 131 / 56; Pulse 72; Resp 18; Pulse Ox 99% ; aj1 21:14 BP 130 / 40; Pulse 72; Resp 20; Pulse Ox 96% ; aj1 MDM: 17:38 Patient medically screened. jr8 21:02 Data reviewed: vital signs, nurses notes, lab test result(s), EKG, radiologic studies, jr8 plain films, and as a result, I will discharge patient. Data interpreted: Pulse oximetry: on room air is 99 %. Interpretation: normal. Counseling: I had a detailed discussion with the patient and/or guardian regarding: the historical points, exam findings, and any diagnostic results supporting the discharge/admit diagnosis, lab results, radiology results, the need for outpatient follow up, a family practitioner, to return to the emergency department if symptoms worsen or persist or if there are any questions or concerns that arise at home. ED course: Patient still without confusion or altered mentation. Still asymptomatic at this time. Denies CP. Will send home on antibiotics as UTI can cause Delirium. No other findings to suggest otherwise. Discussed this with family and patient. Good with this and will f/u . 07/16 17:39 Order name: Basic Metabolic Panel; Complete Time: 19:07/16 17:39 Order name: BNP; Complete Time: 19:07/16 17:39 Order name: CBC with Diff; Complete Time: 19:07/16 17:39 Order name: LFT's; Complete Time: 19:07/16 17:39 Order name: Magnesium; Complete Time: 19:07/16 17:39 Order name: PT-INR; Complete Time: 19:07/16 17:39 Order name: Troponin (emerg Dept Use Only); Complete Time: 19:07/16 17:39 Order name: XRAY Chest (1 view); Complete Time: 18:21 07/16 18:09 Order name: Urine Microscopic Only [facility] 07/16 18:10 Order name: Urine Microscopic Only; Complete Time: 19:09 [facility] 07/16 19:01 Order name: Urine Dipstick--Ancillary (enter results); Complete Time: 19:09 2 07/16 19:05 Order name: Urine Culture [facility] 07/16 20:19 Order name: Troponin I [facility] 07/16 20:19 Order name: Troponin I; Complete Time: 21:02 [facility] 07/16 17:39 Order name: EKG; Complete Time: 17:39 [facility] 07/16 17:39 Order name: Cardiac monitoring; Complete Time: 18:14 [facility] 07/16 17:39 Order name: EKG - Nurse/Tech; Complete Time: 18:14 [facility] 07/16 17:39 Order name: IV Saline Lock; Complete Time: 18:38 [facility] 07/16 17:39 Order name: Labs collected and sent; Complete Time: 18:38 [facility] 07/16 17:39 Order name: O2 Per Protocol; Complete Time: 18:15 [facility] 07/16 17:39 Order name: O2 Sat Monitoring; Complete Time: 18:15 [facility] 07/16 17:39 Order name: Urine Dipstick-Ancillary (obtain specimen); Complete Time: 18:58 [facility] 07/16 18:09 Order name: Straight Cath - Urine; Complete Time: 18:58 [facility] Administered Medications: 19:29 Drug: [place] 5 mg-325 mg 1 tabs Route: PO; ea 21:15 Follow up: Response: No adverse reaction aj 19:29 Drug: Rocephin 1 grams Route: IV; Rate: calculated rate; Site: right antecubital; ea 21:15 Follow up: IV Status: Completed infusion aj1 Disposition: 07/17 09:09 Co-signature as Attending Physician, Antonio Moyer MD I agree with the assessment and constanza plan of care. Disposition: 07/16/17 21:04 Discharged to Home. Impression: Urinary tract infection, site not specified, Delirium due to known physiological condition. - Condition is Stable. - Discharge Instructions: Confusion, Urinary Tract Infection. - Prescriptions for Macrobid 100 mg Oral Capsule - take 1 capsule by ORAL route every 12 hours for 7 days; 14 capsule. - Medication Reconciliation Form, Thank You Letter, Antibiotic Education, Prescription Opioid Use form. - Follow up: Blanca Galeana MD; When: 1 - 2 days; Reason: Recheck today's complaints, Continuance of care, Re-evaluation by your physician. - Problem is new. - Symptoms have improved. Signatures: Dispatcher [employer] Mohini Herrera RN RN aj1 Antonio Moyer MD MD cha Roszak, Josh, PA PA jr8 Tosha Crouch RN RN Irasema Babcock RN RN ea Corrections: (The following items were deleted from the chart) 07/16 22:06 21:04 07/16/2017 21:04 Discharged to Home. Impression: Urinary tract infection, site aj1 not specified; Delirium due to known physiological condition. Condition is Stable. Forms are Medication Reconciliation Form, Thank You Letter, Antibiotic Education, Prescription Opioid Use. Follow up: Blanca Galeana; When: 1 - 2 days; Reason: Recheck today's complaints, Continuance of care, Re-evaluation by your physician. Problem is new. Symptoms have improved. jr8
[2017-07-16 22:14] VITALS: TEMP 98.9
[2017-07-16 22:26] VITALS: BP 130/40; O2SAT 96
--- NOTE | 2017-07-17 06:29 | EKG ---
Test Date: 2017-07-16 Test Time: 18:07:45 Middleware Consultant: TYREE MEASUREMENT RESULTS: Intervals: Rate: 70 ME: 130 QRSD: 92 QT: 392 QTc: 423 [place]: P: 10 ME: 130 QRS: 13 T: 38 INTERPRETIVE STATEMENTS: Normal sinus rhythm Normal ECG Compared to ECG 05/02/2017 08:08:48 No significant changes Electronically Signed On 07-17-17 06:28:32 CDT by Emiliano Flores
== END 2017-07-16 22:06 | disposition home or self-care (01) ==
LOC: ER 17:09
DX: N39.0 Urinary tract infection, site not specified (principal); F05 Delirium due to known physiological condition; N28.9 Disorder of kidney and ureter, unspecified; I10 Essential (primary) hypertension; J44.9 Chronic obstructive pulmonary disease, unspecified; I50.9 Heart failure, unspecified; Z79.01 Long term (current) use of anticoagulants
CPT/HCPCS: 36415; 51702; 71045; 80048; 80076; 83735; 83880; 84484 ×2; 85025; 85610; 87077; 87086; 87088; 87186; 93005; 96365; 96366; 99285; J0696; 81003; 81015